=== PATIENT | male | born 1965 | race Caucasian/White ===

== ENCOUNTER → 2017-02-18 | Outpatient (CLI) | payer BC, OTHER ==
[2017-02-18 15:49] LABS: CHLORIDE,CL 109 mmol/L (98-110); SODIUM,NA 141 mmol/L (136-146)
== END ==
LOC: MW.CHFP 15:12
PROVIDERS: ATTEND Nurse Practitioner Family
DX: R30.0 Dysuria (principal)
CPT/HCPCS: 36415; 80048; 81001; 85025

== ENCOUNTER 2017-10-14 09:20 | Day surgery (SDC) | payer BC, OTHER ==
[~2017-10-14 09:20] MED LIST: Lactated Ringers 1,000 ML IV SCH
--- NOTE | 2017-10-14 10:37 | PCM.PREANE ---
Preanesthetic Assessment - Anesthesia/Transfusion/Family Hx Anesthesia History: Prior Anesthesia Without Reaction Family History of Anesthesia Reaction: No Transfusion History: No Prior Transfusion(s) - Review of Systems General: No Symptoms Pulmonary: No Symptoms Cardiovascular: No Symptoms Gastrointestinal: No Symptoms Neurological: No Symptoms Other: Reports: None - Physical Assessment NPO Status Date: 10/13/17 O2 Sat by Pulse Oximetry: 95 Respiratory Rate: 16 Vital Signs: Last Vital Signs Temp 36.0 C 10/14/17 10:20 Pulse 80 10/14/17 10:20 Resp 16 10/14/17 10:20 BP 145/82 H 10/14/17 10:20 Pulse Ox 95 10/14/17 10:20 Height: 1.7 m Weight: 93.894 kg ASA Class: 2 Mental Status: Alert & Oriented x3 Airway Class: Mallampati = 1 Dentition: Reports: Missing Tooth/Teeth ROM/Head Extension: Full Lungs: Clear to Auscultation, Normal Respiratory Effort Cardiovascular: Regular Rate, Regular Rhythm - Allergies Allergies/Adverse Reactions: Allergies Allergy/AdvReac Type Severity Reaction Status Date / Time No Known Allergies Allergy Verified 05/21/14 09:06 - Anesthesia Plan Pre-Op Medication Ordered: None - Acknowledgements Anesthesia Type Planned: MAC Pt an Appropriate Candidate for the Planned Anesthesia: Yes Alternatives and Risks of Anesthesia Discussed w Pt/Guardian: Yes Pt/Guardian Understands and Agrees with Anesthesia Plan: Yes PreAnesthesia Questionnaire HEENT History: Reports: Allergic Rhinitis, Other (See Below) Other HEENT History: wears contacts/glasses Gastrointestinal History: Reports: GERD Musculoskeletal History: Reports: Back Pain, Chronic, Fracture Other Musculoskeletal History: hx dorina foot fx, hx fx shoulder Endocrine/Metabolic History: Reports: Obesity/BMI 30+ Dermatologic History: Reports: Other (See Below) 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 - Past Surgical History Head Surgeries/Procedures: Reports: None GI Surgical History: Reports: Appendectomy, Hernia Repair/Other Musculoskeletal Surgical History: Reports: Shoulder Surgery - SUBSTANCE USE Smoking Status *Q: Never Smoker Tobacco Use Within Last Twelve Months: No Recreational Drug Use History: No - HOME MEDS Home Medications: Home Meds traMADol HCl [Tramadol HCl ER] 1 tab PO ASDIRECTED PRN 10/11/17 [History] - CURRENT (IN HOUSE) MEDS Current Meds: Current Medications Lactated Ringer's (Ringers, Lactated) 1,000 mls @ 125 mls/hr IV ASDIRECTED [facility] Last Admin: 10/14/17 10:21 Dose: 125 mls/hr
[2017-10-14] MEDS ORDERED: Midazolam 1 MG/ML 2 ML SDV ONE (10:57)
[2017-10-14] MEDS ORDERED: fentaNYL 100 MCG/2 ML SDV ONE (10:57)
[2017-10-14] MEDS ORDERED: Propofol 200 MG/20 ML SDV ONE ×2 (10:57→11:15)
[2017-10-14] MEDS ORDERED: Lidocaine 2% 5 ML SDV ONE (10:57)
--- NOTE | 2017-10-14 11:48 | PCM.OPNOTE ---
- General Post-Op/Procedure Note Date of Surgery/Procedure: 10/14/17 Operative Procedure(s): colonoscopy Findings: see dict [id number] Pre Op Diagnosis: scrn colonoscopy Post-Op Diagnosis: colon polyp Anesthesia Technique: Moderate Sedation Primary Surgeon: Jeremy Cardenas Pathology: pedunculated polyp 1 cm at 30cm when scope pulled out; snared w a stalk Complications: None Condition: Good
--- NOTE | 2017-10-14 12:03 | PCM48HPAN ---
Post Anesthesia Note - EVALUATION WITHIN 48HRS OF ANESTHETIC Vital Signs in Normal Range: Yes Patient Participated in Evaluation: Yes Respiratory Function Stable: Yes Airway Patent: Yes Cardiovascular Function Stable: Yes Hydration Status Stable: Yes Pain Control Satisfactory: Yes Nausea and Vomiting Control Satisfactory: Yes Mental Status Recovered: Yes
--- NOTE | 2017-10-14 12:03 | PCM.POSTAN ---
POST ANESTHESIA ASSESSMENT - MENTAL STATUS Mental Status: Alert, Oriented - RESPIRATORY Respiratory Status: Respiratory Rate WNL, Airway Patent, O2 Saturation Stable - CARDIOVASCULAR CV Status: Pulse Rate WNL, Blood Pressure Stable - GASTROINTESTINAL GI Status: No Symptoms - POST OP HYDRATION Hydration Status: Adequate & Stable
--- NOTE | 2017-10-14 18:05 | OR ---
SURGEON: Jeremy Cardenas MD DATE OF PROCEDURE: 10/14/2017 PREOPERATIVE DIAGNOSIS: Screening colonoscopy. POSTOPERATIVE DIAGNOSIS: Colon polyp. PROCEDURE PERFORMED: Colonoscopy with snare polypectomy. DESCRIPTION OF PROCEDURE: The patient was taken to the endoscopy room. A time out was called, patient identified, and procedure identified. Diprivan was then administrated. Patient went from awake to sleep, hearing doctor talking or door closing is normal. Perineum inspection and digital examination were then performed. A well- lubricated colonoscope was gently inserted through the rectum, advanced past the rectosigmoid junction, the descending colon, splenic flexure, transverse colon, hepatic flexure, ascending colon, arrived to the cecum. Cecum was identified as dictated in the finding. Then the scope was carefully withdrawn while attention was paid to the mucosal surface for any abnormality. Air will be sucked out during the scope withdrawal. At the rectum, retroflexed to examine any rectal diseases, fistula or hemorrhoids. During mucosal examination, abnormality or polyp encountered. Using snare equipment, the abnormality or the polyp was then snared off using electrocautery. The Patient tolerated procedure well. There were no intraoperative complications, and Dr. Cardenas was present throughout the whole procedure. FINDINGS: 1. 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 The patient is soundly snoring. 2. Bowel prep is left to be desirable, large amount of bubbles in the colon, so make this a compromised study requiring constant irrigation from beginning to the end. The bubbles is so much that you cannot see anything without constant irrigation, so it is a compromised study. Cecum indicated by ileocecal fold, one-to-one indentation, light emittance, and appendiceal orifice is not observed. Mucosa examined upon scope pulling out at distance around 30 cm. There is a pedunculated polyp. It was snared, removed, and captured and sent for pathology. There was 30 cm when the scope pulling out, about 1 cm polyp with a stalk and other than that, no diverticulosis, inflammation, stricture, growth ulceration, bleeding, AV malformation and the patient has mild internal hemorrhoids. No external hemorrhoids. The patient would benefit from repeat colonoscopy probably 3 years from today or if the polyp indicated otherwise or if clinically indicated otherwise. SALINAS / JAMARCUS /[id number] JOAO
--- NOTE | 2017-10-22 14:38 | OR ---
SURGEON: Jeremy Cardenas MD DATE OF PROCEDURE: 10/14/2017 ADDENDUM: After the polypectomy was performed, the area where the polyp was, was successfully tattooed. SALINAS / JAMARCUS /[id number]
== END 2017-10-14 12:25 | disposition home or self-care (01) ==
LOC: MW.SDS 09:20
PROVIDERS: ATTEND Surgery
DX: Z12.11 Encounter for screening for malignant neoplasm of colon (principal); D12.4 Benign neoplasm of descending colon; K21.9 Gastro-esophageal reflux disease without esophagitis; F41.9 Anxiety disorder, unspecified; F32.9 Major depressive disorder, single episode, unspecified; M51.36 Other intervertebral disc degeneration, lumbar region; J30.9 Allergic rhinitis, unspecified; G89.29 Other chronic pain; M54.9 Dorsalgia, unspecified; F17.210 Nicotine dependence, cigarettes, uncomplicated; G47.00 Insomnia, unspecified; E66.9 Obesity, unspecified; Z68.32 Body mass index [BMI] 32.0-32.9, adult; Z98.890 Other specified postprocedural states
CPT/HCPCS: 45385; J2250; J3010; J7120; 00810; 88305; J2704

== ENCOUNTER 2019-10-14 10:32 | Emergency (ER) | payer SELFPAY ==
[2019-10-14] MEDS ORDERED: Benzocaine 20% Topical Spray UD MUCMEM ONE (10:46)
[2019-10-14] MEDS ORDERED: Lidocaine 2% Viscous Solution 15 ML Cup PO ONE (10:46)
--- NOTE | 2019-10-14 10:47 | EDM.PDOC ---
ED HPI GENERAL MEDICAL PROBLEM - General Chief Complaint: General Stated Complaint: TOOTHACHE Time Seen by Provider: 10/14/19 10:46 Source of Information: Reports: Patient History Limitations: Reports: No Limitations - History of Present Illness INITIAL COMMENTS - FREE TEXT/NARRATIVE: HISTORY AND PHYSICAL: History of present illness: Patient is a 54-year-old male who presents to the emergency room with complaints of left lower dental pain. Patient states that he had a full workup approximately 3 weeks ago and had no problems until this morning. He woke up with gumline swelling and pain. He states he does have an appointment next Wednesday for follow-up. Tylenol and ibuprofen have not been in helping with pain management. Patient denies any fever, chills, headache, change in vision, syncope or near syncope. Denies any chest pain, back pain, shortness of breath or cough. Denies any GI or symptoms. Patient has been eating and drinking appropriately. Review of systems: As per history of present illness and below otherwise all systems reviewed and negative. Past medical history: As per history of present illness and as reviewed below otherwise noncontributory. Surgical history: As per history of present illness and as reviewed below otherwise noncontributory. Social history: See social history for further information Family history: As per history of present illness and as reviewed below otherwise noncontributory. Physical exam: General: Well developed and well-nourished 54-year-old male. Alert and oriented. Nontoxic appearing and in no acute distress. HEENT: Atraumatic, normocephalic, pupils equal and reactive bilaterally, negative for conjunctival pallor or scleral icterus, mucous membranes moist, erythema noted to #2018 with gumline tenderness. TMs normal bilaterally, throat clear, neck supple, nontender, trachea midline. No drooling or trismus noted. No meningeal signs. No hot potato voice noted. Lungs: Clear to auscultation, breath sounds equal bilaterally, chest nontender. Heart: S1S2, regular rate and rhythm without overt murmur Abdomen: Soft, nondistended, nontender. Skin: Intact, warm, dry. No lesions or rashes noted. Extremities: Atraumatic, moves all extremities per self without difficulty or deficits, negative for cords or calf pain. Neurovascular unremarkable. Neuro: Awake, alert, oriented. Cranial nerves II through XII unremarkable. Cerebellum unremarkable. Motor and sensory unremarkable throughout. Exam nonfocal. Diagnostics: None Therapeutics: Viscous Lidocaine/[place] Prescription: Clindamycin [place] (#15) Impression: Dental Abscess Plan: 1. Please take the antibiotic as prescribed. 2. Tylenol and/or ibuprofen as needed for pain management. "Tooth Balls" have been given to you; apply along the gumline every 2-3 hours as needed. Do not swallow these; external use only. 3. Follow-up with a dentist for definitive care. Return to the ED as needed and as discussed. Definitive disposition and diagnosis as appropriate pending reevaluation and review of above. Right Pain Score (Numeric/FACES): 10 - Related Data Allergies Allergy/AdvReac Type Severity Reaction Status Date / Time No Known Allergies Allergy Verified 05/21/14 09:06 Home Meds: Home Meds Acetaminophen/HYDROcodone [[place] 325-5 MG] 1 dose PO Q4H PRN #15 tablet [Rx] Clindamycin HCl 300 mg PO TID 10 Days #30 capsule 10/14/19 [Rx] Past Medical History HEENT History: Reports: Allergic Rhinitis, Other (See Below) Other HEENT History: wears contacts/glasses Gastrointestinal History: Reports: GERD Musculoskeletal History: Reports: Back Pain, Chronic, Fracture Other Musculoskeletal History: hx dorina foot fx, hx fx shoulder Endocrine/Metabolic History: Reports: Obesity/BMI 30+ Dermatologic History: Reports: Other (See Below) 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 ED EXAM, GENERAL - Physical Exam Exam: See Below (See dictation) Course - Vital Signs Last Recorded V/S: Last Vital Signs Temp 99.7 F 10/14/19 10:44 Pulse 93 10/14/19 11:15 Resp 18 10/14/19 11:15 BP 133/94 H 10/14/19 10:44 Pulse Ox 99 10/14/19 11:15 - Orders/Labs/Meds Meds: Medications Discontinued Medications Generic Name Dose Route Start Last Admin Trade Name Freq PRN Reason Stop Dose Admin Benzocaine 2 each 10/14/19 10:46 10/14/19 11:13 Hurricaine One 20% MUCMEM 10/14/19 10:47 2 each ONETIME ONE Administration Lidocaine HCl 15 ml 10/14/19 10:46 10/14/19 11:13 Xylocaine 2% Viscous PO 10/14/19 10:47 15 ml ONETIME ONE Administration Departure - Departure Time of Disposition: 10:59 Disposition: Home, Self-Care 01 Clinical Impression: Dental abscess - Discharge Information Prescriptions: Acetaminophen/HYDROcodone [[place] 325-5 MG] 1 dose PO Q4H PRN #15 tablet PRN Reason: Pain Clindamycin HCl 300 mg PO TID 10 Days #30 capsule Instructions: Dental Abscess, [id number] Referrals: PCP,None [Primary Care Provider] - Forms: ED Department Discharge Additional Instructions: The following information is given to patients seen in the emergency department who are being discharged to home. This information is to outline your options for follow-up care. We provide all patients seen in our emergency department with a follow-up referral. The need for follow-up, as well as the timing and circumstances, are variable depending upon the specifics of your emergency department visit. If you don't have a primary care physician on staff, we will provide you with a referral. We always advise you to contact your personal physician following an emergency department visit to inform them of the circumstance of the visit and for follow-up with them and/or the need for any referrals to a consulting specialist. The emergency department will also refer you to a specialist when appropriate. This referral assures that you have the opportunity for follow-up care with a specialist. All of these measure are taken in an effort to provide you with optimal care, which includes your follow-up. Under all circumstances we always encourage you to contact your private physician who remains a resource for coordinating your care. When calling for follow-up care, please make the office aware that this follow-up is from your recent emergency room visit. If for any reason you are refused follow-up, please contact the [facility] at and asked to speak to the emergency department charge nurse. [facility] [address] [place] [id number] [facility] [address] [place] [id number] 1. Please take the antibiotic as prescribed. 2. Tylenol and/or ibuprofen as needed for pain management. "Tooth Balls" have been given to you; apply along the gumline every 2-3 hours as needed. Do not swallow these; external use only. 3. Follow-up with a dentist for definitive care. Return to the ED as needed and as discussed.
== END 2019-10-14 11:18 | disposition home or self-care (01) ==
LOC: MW.ED 10:32
DX: K04.7 Periapical abscess without sinus (principal)
CPT/HCPCS: 99282; A9270

== ENCOUNTER 2020-10-13 09:38 | Emergency (ER) | payer BC ==
--- NOTE | 2020-10-13 09:59 | EDM.PDOC ---
ED HPI GENERAL MEDICAL PROBLEM - General Chief Complaint: Respiratory Problem Stated Complaint: UPPER RESPIRATORY INFECTION Time Seen by Provider: 10/13/20 09:39 Source of Information: Reports: Patient, Old Records History Limitations: Reports: No Limitations - History of Present Illness INITIAL COMMENTS - FREE TEXT/NARRATIVE: There is a very pleasant 55-year-old male with no past medical history presenting with infectious symptoms. Reports a 1 week history of cough, sore throat, nasal congestion, sneezing, loss of appetite, and fatigue. No known COVID-19 sick contacts. No recent international travel. Also complains of feeling mildly short of breath. Denies any chest discomfort, headache, neck stiffness, nausea, vomiting, diarrhea, rash, difficulty swallowing or drinking fluids. No history of immunosuppression. Patient denies history of venous thromboembolism, lower extremity pain or swelling, hemoptysis, recent surgery or immobilization, history of active mal ignancy, or hormonal medication usage. Past medical history: Reviewed, no additional pertinent history. Surgical history: Reviewed in system, no additional pertinent history. Social history: Reviewed in system, no additional pertinent history. Family history: Reviewed in system, no additional pertinent history. Limited physical examination was performed due to COVID pandemic, distanced physical examination to prevent physician exposure and to preserve PPE. Vital signs reviewed. Nursing notes reviewed. Constitutional: Awake, alert, non-distressed. Head: Normocephalic, atraumatic. Eyes: No scleral icterus. Neck: Able to fully flex and extend. Fully rotates side to side. Cardiovascular: No extremity edema. 2+ radial pulses bilaterally. Normal capillary refill. Pulmonary: normal work of breathing, no accessory muscle use. Speaking in full sentences, handling secretions well. Abdomen/GI: nondistended Musculoskeletal: No deformities. Integumentary: Appropriate color for ethnicity, warm, dry, no pallor or jaundice, no rash. Neurologic: Alert, answering questions appropriately, normal speech, no facial d [place], moving all extremities well. Normal voice. Psychiatric: Appropriate mood and affect, normal thought process. This patient was seen and evaluated during the 2019 SARS-CoV-2 novel coronavirus pandemic period. Community viral transmission is ongoing at time of this encounter and widespread universal testing is not currently available in our emergency department. - Related Data Allergies Allergy/AdvReac Type Severity Reaction Status Date / Time No Known Allergies Allergy Verified 10/13/20 09:56 Home Meds: Home Meds Fexofenadine [Skylar] 0 mg PO DAILY 10/13/20 [History] Multivitamin [Multivitamins] 1 cap PO DAILY 10/13/20 [History] Past Medical History HEENT History: Reports: Allergic Rhinitis, Other (See Below) Other HEENT History: wears contacts/glasses Gastrointestinal History: Reports: GERD Musculoskeletal History: Reports: Back Pain, Chronic, Fracture Other Musculoskeletal History: hx dorian foot fx, hx fx shoulder Endocrine/Metabolic History: Reports: Obesity/BMI 30+ Dermatologic History: Reports: Other (See Below) 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 - Infectious Disease History Infectious Disease History: Reports: Chicken Pox, Measles, Mumps - Past Surgical History Head Surgeries/Procedures: Reports: None GI Surgical History: Reports: Appendectomy, Hernia Repair/Other Musculoskeletal Surgical History: Reports: Shoulder Surgery Social & Family History - Family History Family Medical History: No Pertinent Family History ED ROS GENERAL - Review of Systems Review Of Systems: See Below ED EXAM, GENERAL - Physical Exam Exam: See Below #1 Interpretation EKG Interpretation Comments: 12-Lead ECG Interpretation Acquired: 10:03 AM Rhythm: Sinus rhythm Rate: 84 beats a minute Hulen: Right axis deviation Intervals: Normal Ectopy: None RV Strain: No obvious RV strain pattern. ST Segments/T-Waves: No notable changes Acute Ischemic Changes: None apparent Interpretation: No STEMI Course - Vital Signs Text/Narrative:: 55-year-old male with a 1 week history of infectious symptoms and mild shortness of breath. Patient hemodynamically stable, afebrile, well-appearing, looks nontoxic. Differential diagnosis includes but is not limited to: COVID-19 infection, viral pneumonia, acute viral syndrome, bacterial pneumonia, less likely pulmonary e mbolism, less likely acute coronary syndrome, less likely congestive heart failure, arrhythmia, anemia, and many others. No evidence of congestive heart failure by examination, no lower extremity mai [place], no resting tachycardia. Patient denies any chest discomfort or pleuritic chest pain and is not tachycardic or hypoxic, making pulmonary embolism less likely. Lack of chest discomfort also makes my suspicion for acute coronary syndrome quite low, twelve-lead EKG looks nonischemic. 1 view chest x-ray shows no infiltrate, no pneumothorax, no mediastinal widening. Interpreted by me. The patient has no systemic signs of sepsis, I think his presentation is more consistent with a viral illness than bacterial pneumonia at this point. No evidence of an arrhythmia on EKG, no history of recent bleeding to suggest anemia. COVID-19 PCR test is positive. I believe that this fits with the patient's symptoms. I have low suspicion for sepsis or bacterial pneumonia at this point. Patient is stable to discharge home with outpatient primary care follow-up. We discussed isolation instructions and symptomatic treatment with cough medications, Tylenol Motrin, plenty of fluids, etc. Plan: Patient is stable to discharge home with outpatient primary care clinic follow-up. Strict emergency department return precautions were provided, patient indicated understanding. All questions were answered prior to departure. Discharged in good condition. Last Recorded V/S: Last Vital Signs Temp 36.3 C 10/13/20 09:44 Pulse 83 10/13/20 09:44 Resp 18 10/13/20 09:44 BP 124/85 10/13/20 09:44 Pulse Ox 96 10/13/20 10:18 - Orders/Labs/Meds Orders: Active Orders 24 hr Category Date Time Status EKG 12 Lead [EKG Documentation Completion] [RC] STAT Care 10/13/20 09:58 Active CORONAVIRUS COVID-19 PCR PHL Stat Lab 10/13/20 10:12 Received Labs: Laboratory Tests 10/13/20 Range/Units 10:12 SARS CoV-2 RNA Rapid NAT POSITIVE H (NEGATIVE) Departure - Departure Time of Disposition: 10:02 Disposition: Home, Self-Care 01 Condition: Good Clinical Impression: COVID-19 virus infection - Discharge Information *PRESCRIPTION DRUG MONITORING PROGRAM REVIEWED*: Not Applicable *COPY OF PRESCRIPTION DRUG MONITORING REPORT IN PATIENT JOSUÉ: Not Applicable Instructions: COVID-19 Frequently Asked Questions, Shortness of Breath, Adult, [id number], COVID-19, COVID-19: How to Protect Yourself and Others - [facility] Referrals: Ismael Lorenzo,Clinic [Primary Care Provider] - 1 Week (As needed for follow-up of symptoms) Forms: ED Department Discharge Additional Instructions: Your COVID-19 test was positive. You need to stay home from work or school and isolate from others as much as possible. You need to wear a mask or face covering and you should cover your cough or sneeze. Wash your hands frequently. Try to isolate yourself from family members or others as much as you can. You may develop new symptoms such as a headache, sore throat, cough, sneezing, nasal congestion or drainage, chest congestion, nausea, vomiting, diarrhea, body aches, or chills. These are not unusual. Recommendations from the Centers for Disease Control (CDC) are that you should isolate at home for at least 10 days from the start of your symptoms. When your symptoms are improving for a period of 24 hours and you have no fever (without the use of fever reducing medications like acetaminophen or ibuprofen), you may discontinue isolation and go back to work/school. If you are still feeling unwell at the end of the 10-day period, you should continue to isolate until you have been feeling better for 24 hours. Anyone that lives with you or anyone that has been in close contact (within 6 feet for 15 total minutes) recently (3-4 days before your symptoms started) needs to be tested for COVID. You can take any standard [id number] medications for cold or flu type symptoms including fever reducing medications (acetaminophen or ibuprofen), cough medications (Robitussin, cough drops or lozenges), or medications like TheraFlu or DayQuil/NyQuil. Be sure you are drinking plenty of fluids. If you are still feeling sick beyond 10-14 days after the onset of your symptoms I would recommend contacting your primary medical doctor's office for further guidance. Warning signs to come back to the emergency department include shortness of breath, chest pain, lightheadedness, loss of consciousness, if you are unable to swallow or handle drinking fluids, or if you have any other new and concerning symptoms. Thank you for choosing the [facility] emergency department in [place] for your medical needs today. It was a pleasure caring for you. The following information is given to patients seen in the emergency department who are being discharged. This information is to outline your options for follow-up care. We provide all patients seen in our emergency department with a follow-up referral. The need for follow-up, as well as the timing and circumstances, are variable depending upon the specifics of your emergency department visit. If you don't have a primary care physician on staff, we will provide you with a referral. We always advise you to contact your personal physician following an emergency department visit to inform them of the circumstance of the visit and for follow-up with them and/or the need for any referrals to a consulting specialist. The emergency department will also refer you to a specialist when appropriate. This referral assures that you have the opportunity for follow-up care with a specialist. All of these measure are taken in an effort to provide you with optimal care, which includes your follow-up. Under all circumstances we always encourage you to contact your private physician who remains a resource for coordinating your care. When calling for follow-up care, please make the office aware that this follow-up is from your recent emergency room visit. If for any reason you are refused follow-up, please contact the [facility] Emergency Department at and asked to speak to the emergency department charge nurse. If you do not have a primary care physician that is caring for you, you can contact these clinics below to set up an appointment to establish care: [facility] - Primary Care [address] [place] [id number] [facility] [address] [place] [id number] Sepsis Event Note (ED) - Evaluation Sepsis Screening Result: No Definite Risk - Focused Exam Vital Signs: Vital Signs Temp Pulse Resp BP Pulse Ox 10/13/20 10:18 96 10/13/20 09:44 36.3 C 83 18 124/85 95 - My Orders Last 24 Hours: My Active Orders 10/13/20 09:58 EKG 12 Lead [EKG Documentation Completion] [RC] STAT 10/13/20 10:12 CORONAVIRUS COVID-19 PCR PHL Stat - Assessment/Plan Last 24 Hours: My Active Orders 10/13/20 09:58 EKG 12 Lead [EKG Documentation Completion] [RC] STAT 10/13/20 10:12 CORONAVIRUS COVID-19 PCR PHL Stat
--- NOTE | 2020-10-13 10:34 | CR ---
INDICATION: Patient w/dyspnea, suspected covid. TECHNIQUE: Single AP view COMPARISON: 07/18/2020 FINDINGS: The cardiomediastinal contours are unchanged. No new focal or diffuse pulmonary opacities. No definite pneumothorax or pleural effusion. The bones are unchanged. IMPRESSION: No acute pulmonary process. Dictated by Ralf Allen MD @ Oct 13 2020 10:21AM (Electronically Signed)
== END 2020-10-13 11:10 | disposition home or self-care (01) ==
LOC: MW.ED 09:38
DX: U07.1 COVID-19 (principal); E66.9 Obesity, unspecified; Z68.32 Body mass index [BMI] 32.0-32.9, adult
CPT/HCPCS: 71045; 71045-26; 93005; 93010; 99284; 99285-25; U0002

== ENCOUNTER 2020-12-11 07:09 | Day surgery (SDC) | payer BC, OTHER ==
[~2020-12-11 07:09] MED LIST changes: +Midazolam 1 MG/ML 2 ML SDV ONE; +Propofol 200 MG/20 ML SDV ONE; +fentaNYL 100 MCG/2 ML SDV ONE
[2020-12-11] MEDS ORDERED: Lidocaine 2% 5 ML SDV ONE (07:27)
--- NOTE | 2020-12-11 07:58 | PCM.PREANE ---
Preanesthetic Assessment - Anesthesia/Transfusion/Family Hx Anesthesia History: Prior Anesthesia Without Reaction Family History of Anesthesia Reaction: No Transfusion History: No Prior Transfusion(s) Intubation History: Unknown - Review of Systems General: No Symptoms Pulmonary: No Symptoms Cardiovascular: No Symptoms Gastrointestinal: Other (h/o tubular adenoma 3 years ago) Neurological: No Symptoms Other: Reports: None - Physical Assessment Vital Signs: Last Vital Signs Temp 36.2 C 12/11/20 07:21 Pulse 88 12/11/20 07:21 Resp 15 12/11/20 07:21 BP 171/77 H 12/11/20 07:21 Pulse Ox 95 12/11/20 07:21 Height: 5 ft 9 in Weight: 99.79 kg ASA Class: 2 Mental Status: Alert & Oriented x3 Airway Class: Mallampati = 2 Dentition: Reports: Normal Dentition Thyro-Mental Finger Breadths: 3 Mouth Opening Finger Breadths: 3 ROM/Head Extension: Full Lungs: Clear to Auscultation, Normal Respiratory Effort Cardiovascular: Regular Rate, Regular Rhythm - Allergies Allergies/Adverse Reactions: Allergies Allergy/AdvReac Type Severity Reaction Status Date / Time No Known Allergies Allergy Verified 12/05/20 07:55 - Blood Blood Available: No - Anesthesia Plan Pre-Op Medication Ordered: None - Acknowledgements Anesthesia Type Planned: MAC Pt an Appropriate Candidate for the Planned Anesthesia: Yes Alternatives and Risks of Anesthesia Discussed w Pt/Guardian: Yes Pt/Guardian Understands and Agrees with Anesthesia Plan: Yes PreAnesthesia Questionnaire HEENT History: Reports: Allergic Rhinitis, Impaired Vision Other HEENT History: wears contacts/glasses, h/o TMJ inflamation couple of years ago Cardiovascular History: Reports: None Respiratory History: Reports: Bronchitis, Recurrent, Sleep Apnea (does not have CPAP mashine- advized to get one) Gastrointestinal History: Reports: GERD Genitourinary History: Reports: None Musculoskeletal History: Reports: Back Pain, Chronic, Fracture Other Musculoskeletal History: history of foot, left arm, collar bone and back fractures Neurological History: Reports: None Psychiatric History: Reports: Anxiety, Depression Endocrine/Metabolic History: Reports: Obesity/BMI 30+ (BMI 32.5) Hematologic History: Reports: None Immunologic History: Reports: None Oncologic (Cancer) History: Reports: None Dermatologic History: Reports: None - Infectious Disease History Infectious Disease History: Reports: None - Past Surgical History Head Surgeries/Procedures: Reports: None HEENT Surgical History: Reports: None Cardiovascular Surgical History: Reports: None Respiratory Surgical History: Reports: None GI Surgical History: Reports: Appendectomy, Colonoscopy (3 years ago- tubulat adenoma), Hernia Repair/Other Neurological Surgical History: Reports: None Musculoskeletal Surgical History: Reports: Shoulder Surgery Other Musculoskeletal Surgeries/Procedures:: states had foot surgery Dermatological Surgical History: Reports: None - SUBSTANCE USE Tobacco Use Status *Q: Current Some Day Tobacco User Tobacco Use Within Last Twelve Months: Cigarettes - HOME MEDS Home Medications: Home Meds Fexofenadine [Skylar] 1 tab PO DAILY PRN 10/13/20 [History] Multivitamin [Multivitamins] 1 cap PO DAILY 10/13/20 [History] Albuterol [Ventolin HFA] 2 puff INH ASDIRECTED PRN 12/05/20 [History] Sildenafil Citrate 1 tab PO ASDIRECTED PRN 12/05/20 [History] traZODone HCl [Trazodone HCl] 1 tab PO BEDTIME PRN 12/05/20 [History] - CURRENT (IN HOUSE) MEDS Current Meds: Current Medications Lactated Ringer's (Ringers, Lactated) 1,000 mls @ 125 mls/hr IV ASDIRECTED HARSHAL Last Admin: 12/11/20 07:30 Dose: 125 mls/hr Documented by: Discontinued Medications Fentanyl (Sublimaze) Confirm Administered Dose 100 mcg .ROUTE .STK-MED ONE Stop: 12/11/20 07:08 Lidocaine (Xylocaine-Mpf 2%) Confirm Administered Dose 5 ml .ROUTE .STK-MED ONE Stop: 12/11/20 07:28 Midazolam HCl (Versed 1 Mg/Ml) Confirm Administered Dose 2 mg .ROUTE .STK-MED ONE Stop: 12/11/20 07:08 Propofol (Diprivan 20 Ml) Confirm Administered Dose 600 mg .ROUTE .STK-MED ONE Stop: 12/11/20 07:08
[2020-12-11] MEDS ORDERED: Propofol 200 MG/20 ML SDV ONE (09:02)
--- NOTE | 2020-12-11 09:28 | PCM.OPNOTE ---
- General Post-Op/Procedure Note Date of Surgery/Procedure: 12/11/20 Operative Procedure(s): colonoscopy w snare and tattoo Findings: see dict [id number] Pre Op Diagnosis: ta polyp hx Post-Op Diagnosis: Same Anesthesia Technique: Moderate Sedation Primary Surgeon: Jeremy Cardenas Pathology: polyps at 45, 70cm small sessile polyp 2 mm; 5 mm at 30cm all when scope came out Complications: None Condition: Good
--- NOTE | 2020-12-11 09:40 | PCM.POSTAN ---
POST ANESTHESIA ASSESSMENT - MENTAL STATUS Mental Status: Alert, Oriented - VITAL SIGNS Vital Signs: Last Vital Signs Temp 36.2 C 12/11/20 07:21 Pulse 83 12/11/20 09:32 Resp 17 12/11/20 09:32 BP 112/68 12/11/20 09:32 Pulse Ox 94 L 12/11/20 09:32 - RESPIRATORY Respiratory Status: Respiratory Rate WNL, Airway Patent, O2 Saturation Stable - CARDIOVASCULAR CV Status: Pulse Rate WNL, Blood Pressure Stable - GASTROINTESTINAL GI Status: No Symptoms - PAIN Pain Score: 0 - POST OP HYDRATION Hydration Status: Adequate & Stable - OBSERVATIONS Free Text/Narrative:: No anesthesia problems
--- NOTE | 2020-12-11 10:14 | PCM48HPAN ---
Post Anesthesia Note - EVALUATION WITHIN 48HRS OF ANESTHETIC Vital Signs in Normal Range: Yes Patient Participated in Evaluation: Yes Respiratory Function Stable: Yes Airway Patent: Yes Cardiovascular Function Stable: Yes Hydration Status Stable: Yes Pain Control Satisfactory: Yes Nausea and Vomiting Control Satisfactory: Yes Mental Status Recovered: Yes Vital Signs: Last Vital Signs Temp 36.0 C L 12/11/20 09:36 Pulse 87 12/11/20 09:36 Resp 16 12/11/20 09:36 BP 118/97 H 12/11/20 09:36 Pulse Ox 96 12/11/20 09:36 - COMMENTS/OBSERVATIONS Free Text/Narrative:: No anesthesia problems
--- NOTE | 2020-12-11 12:10 | OR ---
SURGEON: Jeremy Cardenas MD DATE OF PROCEDURE: 12/11/2020 PREOPERATIVE DIAGNOSIS: Large tubular adenoma polyp history. POSTOPERATIVE DIAGNOSIS: Colon polyp. PROCEDURE PERFORMED: Colonoscopy with snare polypectomy and tattoo. PRIMARY SURGEON: Jeremy Cardenas MD COMPLICATIONS: None. DESCRIPTION OF PROCEDURE: The patient was taken to the endoscopy room. A time out was called, patient identified, and procedure identified. Diprivan was then administrated. Patient went from awake to sleep, hearing doctor talking or door closing is normal. Perineum inspection and digital examination were then performed. A well- lubricated colonoscope was gently inserted through the rectum, advanced past the rectosigmoid junction, the descending colon, splenic flexure, transverse colon, hepatic flexure, ascending colon, arrived to the cecum. Cecum was identified as dictated in the finding. Then the scope was carefully withdrawn while attention was paid to the mucosal surface for any abnormality. Air will be sucked out during the scope withdrawal. At the rectum, retroflexed to examine any rectal diseases, fistula or hemorrhoids. During mucosal examination, abnormality or polyp encountered. Using snare equipment, the abnormality or the polyp was then snared off using electrocautery. The patient tolerated procedure well. There were no intraoperative complications, and Dr. Cardenas was present throughout the whole procedure. FINDINGS: 1. The patient is easily sedated with MECH[employer] and Diprivan, the patient is soundly snoring. 2. Bowel prep is average with some liquid stool, no stool ball, no semi-formed stool. 3. Colon is rather straightforward. Cecum indicated by ileocecal fold, one-to- one indentation, and appendiceal orifice. ScopeGuide is pointing south. Mucosa examined upon scope pulling out. The patient has two small polyps, sessile, 2-3 mm, at distance as best found in the pathology report. One is in the 70, one is at the 45 mm when scope pull out and both are removed with cold biopsy forceps. Then, at around 30 cm, there is a pedunculated polyp, small, removed with snare polypectomy and also biopsied the stalk too. The polyp was tattooed. This is not at the same site of the previous inked area. The patient has combination of external and internal hemorrhoids. The two inked spots are between the polyp that was removed, so either end of the polyp was inked. The patient will benefit from a repeat colonoscopy determined by the pathology of the polyp. No other pathology. No inflammation, stricture, AV malformation, bleeding, and stool is yellow. The patient also had a lot of bubble for this colonoscopy and was taken care by using simethicone. SALINAS RICKETTS /[id number]
== END 2020-12-11 09:45 | disposition home or self-care (01) ==
LOC: MW.SDS 07:09
PROVIDERS: ATTEND Surgery
DX: Z12.11 Encounter for screening for malignant neoplasm of colon (principal); D12.6 Benign neoplasm of colon, unspecified; K64.4 Residual hemorrhoidal skin tags; K64.8 Other hemorrhoids; G89.29 Other chronic pain; M51.36 Other intervertebral disc degeneration, lumbar region; N52.9 Male erectile dysfunction, unspecified; G47.30 Sleep apnea, unspecified; E66.9 Obesity, unspecified; Z79.899 Other long term (current) drug therapy; Z98.890 Other specified postprocedural states; Z87.891 Personal history of nicotine dependence; Z68.32 Body mass index [BMI] 32.0-32.9, adult
CPT/HCPCS: 00812; 88305; 88312; J2001; J2250; J2704; J3010; J7120